=== PATIENT | female | born 1940 | race Caucasian/White ===

== ENCOUNTER 2024-11-19 14:33 | Emergency (ER) | payer MEDICARE ==
[2024-11-19 15:29] VITALS: TEMP 97.2
[2024-11-19 15:34] LABS: Appearance Cloudy (Clear); Bilirubin Negative (Negative); Blood Trace (Negative); Glucose, Urine Negative (Negative); Hyaline Casts NONE SEEN /LPF (0-2); Ketones Negative (Negative); Leukocyte Esterase Moderate (Negative); Nitrite Negative (Negative); Ph 5.5 (4.6-8.0); Protein,Urine Dip 100 (Negative); Specific Gravity 1.015 (1.005-1.030); Urobilinogen 0.2 mg/dL (0.2); WBC >100 /HPF (0-5)
[2024-11-19 15:47] LABS: Bacteria Few /HPF (None Seen); Budding Yeast Few /HPF (None Seen); Epithelial Cells Few /HPF (None Seen)
--- NOTE | 2024-11-19 15:47 | ERPHSYRPT ---
- History of Present Illness Time Seen by Provider: 11/19/24 15:38 Source: patient Exam Limitations: no limitations Patient Subjective Stated Complaint: UTI symptoms Triage Nursing Assessment: Patient brought back to ED per w/c and transferred self to bed. Patient A+O X3. Patient's skin pink, warm and dry. Patient complains of UTI symptoms for the past month. Patient complains of urgency, frequency, hesitency and pressure when urinating for the past month. Patient denies pain or discomfort. Allergies/Adverse Reactions: codeine [Codeine] Allergy (Verified 11/19/24 15:19) Nausea and Vomiting Penicillins Allergy (Verified 11/19/24 15:19) Sulfa (Sulfonamide Antibiotics) [Sulfa(Sulfonamide Antibiotics)] Allergy ( Verified 11/19/24 15:19) Rash Home Medications: Metoprolol Tartrate 25 mg [Lopressor 25MG Tab] 25 mg PO DAILY 03/08/12 [History] Multivitamin [Daily Multiple Vitamin] 1 each PO DAILY 03/08/12 [History] Omeprazole [Prilosec] 40 mg PO DAILY 03/08/12 [History] Fenofibrate [Lipofen] 134 mg PO DAILY 06/04/13 [History] Lisinopril 20 mg [Zestril 20 MG] 20 mg PO DAILY 06/04/13 [History] Hx Tetanus, Diphtheria Vaccination/Date Given: Yes (UNKNOWN) Hx Influenza Vaccination/Date Given: No Hx Pneumococcal Vaccination/Date Given: Yes Travel Risk - International Travel Have you traveled outside of the country in past 3 weeks: No - Emerging Infectious Disease Are you exhibiting symptoms associated with any current EIDs: No - Past Medical History Pertinent Past Medical History: Yes Neurological History: No Pertinent History ENT History: No Pertinent History Cardiac History: High Cholesterol, Hypertension Respiratory History: COPD Endocrine Medical History: Diabetes Type II Musculoskeletal History: Arthritis GI Medical History: GI Bleed, Irritable Bowel, Polyps History: No Pertinent History Psycho-Social History: No Pertinent History Female Reproductive Disorders: No Pertinent History Other Medical History: hiatel hernia,sob with exertion - Past Surgical History Past Surgical History: Yes Neuro Surgical History: Other Cardiac: No Pertinent History Respiratory: No Pertinent History Gastrointestinal: No Pertinent History, Rectal Surgery Genitourinary: No Pertinent History Musculoskeletal: Orthopedic Surgery Female Surgical History: Section, Hysterectomy, Tubal Ligation Other Surgical History: A & P repair. stroke left side affected - Social History Smoking Status: Never smoker Exposure to second hand smoke: Yes Drug Use: none - Social Determinants of Health Will the patient participate in the screening: Yes Do you worry about a steady place to live?: No Do you have any problems with any of the following?: No known problems In the past 12 months,have you had to go without utilities?: No Transportation Issues: No Has anyone in your support network made you feel unsafe?: No Have you or anyone in your house had to go w/o enough food: No - Nursing Vital Signs Nursing Vital Signs: Initial Vital Signs Temperature 97.2 F 11/19/24 15:22 Pulse Rate 96 H 11/19/24 15:22 Respiratory Rate 20 11/19/24 15:22 Blood Pressure 184/86 11/19/24 15:22 O2 Sat by Pulse Oximetry 97 11/19/24 15:22 Pain Scale Pain Intensity 0 - Physical Exam SpO2: 97 Ordered Tests: Active Orders 24 hr Category Date Time Status BMP Stat Lab 11/19/24 16:10 Completed CBC W DIFF Stat Lab 11/19/24 16:10 Completed CULTURE,URINE Stat Lab 11/19/24 15:18 Received UA W/RFX UR CULTURE Stat Lab 11/19/24 15:18 Completed Medication Summary Discontinued Medications Generic Name Dose Route Start Last Admin Trade Name Freq PRN Reason Stop Dose Admin Cefdinir 300 mg 11/19/24 17:43 Cefdinir 300 Mg Capsule PO 11/19/24 17:44 ONCE ONE Lab/Rad Data: Laboratory Result Diagrams 11/19/24 16:10 11/19/24 16:10 Laboratory Results 11/19/24 11/19/24 11/19/24 Range/Units 16:10 16:10 15:18 WBC 6.4 (3.98-10.04) x10^3/uL RBC 4.50 (3.93-5.22) x10^6/uL Hgb 13.7 (11.2-15.7) g/dL Hct 40.0 (34.1-44.9) % MCV 88.9 (79.4-94.8) fL MCH 30.4 (25.6-32.2) pg MCHC 34.3 (32.2-35.5) g/dL RDW 11.8 (11.7-14.4) % Plt Count 203 (182-369) x10^3/uL MPV 11.0 (9.4-12.3) fL Gran % 57.3 (34.0-71.1) % Immature Gran % (Auto) 0.2 (0.001-0.429) % Nucleat RBC Rel Count 0.0 (0.00-0.2) % Eos # (Auto) 0.02 L (0.04-0.36) x10^3/uL Immature Gran # (Auto) 0.01 (0.001-0.031) x10^3u/L Absolute Lymphs (auto) 1.97 (1.18-3.74) x10^3/uL Absolute Monos (auto) 0.70 (0.24-0.86) x10^3/uL Absolute Nucleated RBC 0.00 (0.00-0.012) x10^3u/L Lymphocytes % 30.7 (19.3-51.7) % Monocytes % 10.9 (4.7-12.5) % Eosinophils % 0.3 L (0.7-5.8) % Basophils % 0.6 (0.1-1.2) % Absolute Granulocytes 3.67 (1.56-6.13) x10^3/uL Basophils # 0.04 (0.01-0.08) x10^3/uL Sodium 138 (135-145) mmol/L Potassium 3.2 L (3.5-5.1) mmol/L Chloride 100 (98-107) mmol/L Carbon Dioxide 29 (22-30) mmol/L Anion Gap 12.7 (5-15) MEQ/L BUN 8 (7-17) mg/dL Creatinine 0.62 (0.52-1.04) mg/dL Estimated GFR 88.9 ML/MIN Glucose 210 H (74-106) mg/dL Calcium 8.8 (8.4-10.2) mg/dL Urine Color Yellow (Yellow) Urine Appearance Cloudy A (Clear) Urine pH 5.5 (4.6-8.0) Ur Specific [place] 1.015 (1.005-1.030) Urine Protein 100 A (Negative) Urine Glucose (UA) Negative (Negative) mg/dL Urine Ketones Negative (Negative) Urine Blood Trace (Negative) Urine Nitrite Negative (Negative) Urine Bilirubin Negative (Negative) Urine Urobilinogen 0.2 (0.2) mg/dL Ur Leukocyte Esterase Moderate A (Negative) U Hyaline Cast (Auto) NONE SEEN (0-2) /LPF Urine Microscopic RBC 6-10 A (0-5) /HPF Urine Microscopic WBC >100 A (0-5) /HPF Ur Epithelial Cells Few (None Seen) /HPF Urine Bacteria Few A (None Seen) /HPF Urine Yeast (Budding) Few A (None Seen) /HPF Urine Culture Reflexed YES (NO) - Progress Progress: improved Air Movement: good Progress Note: 11/19/24 17:44 UA suggestive of UTI other labs largely unremarkable pt vitally stable and AxO x3 throughout exam given dose of cefdinir in ED, will send home w/ 7d course complete entire course of antibiotics given list of local PCP - recommend trying to establish with Dr Helton this week recommend plenty of oral hydration be sure to take blood pressure medication as prescribed return to ED if - develop confusion, develop fevers, start to have falls 11/19/24 17:48 Blood Culture(s) Obtained: No Antibiotics given: Yes Counseled pt/family regarding: lab results, diagnosis, need for follow-up Medical Desision Making - Risk of complications Low Risk: Low risk of morbidity from additional dx testing or treatment - Departure Departure Disposition: Home Clinical Impression: UTI (urinary tract infection) Qualifiers: Urinary tract infection type: acute cystitis Hematuria presence: with hematuria Qualified Code(s): N30.01 - Acute cystitis with hematuria Hypertension Qualifiers: Hypertension type: primary hypertension Qualified Code(s): I10 - Essential (primary) hypertension Condition: Stable Critical Care Time: No Referrals: SYLVIA MARQUEZ DO [NON-STAFF PHY W/O PRIVILEGES] - Follow up/PCP as directed Additional Instructions: given dose of cefdinir in ED, will send home w/ 7d course complete entire course of antibiotics given list of local PCP - recommend trying to establish with Dr Helton this week recommend plenty of oral hydration be sure to take blood pressure medication as prescribed return to ED if - develop confusion, develop fevers, start to have falls Prescriptions: Cefdinir [Omnicef 300 mg] 300 mg PO BID 7 Days #13 cap
[2024-11-19 16:39] LABS: Absolute Neutrophil Ct (ANC) 3.67 x10^3/uL (1.56-6.13); BASOPHIL % 0.6 % (0.1-1.2); Basophil (Absolute #) 0.04 x10^3/uL (0.01-0.08); Eosinophil % 0.3 % (0.7-5.8); Eosinophil (Absolute #) 0.02 x10^3/uL (0.04-0.36); Hemoglobin 13.7 g/dL (11.2-15.7); IMMATURE GRAN # 0.01 x10^3u/L (0.001-0.031); IMMATURE GRAN % 0.2 % (0.001-0.429); Lymphocyte (Absolute #) 1.97 x10^3/uL (1.18-3.74); Lymphocytes % 30.7 % (19.3-51.7); Mean Cell Volume 88.9 fL (79.4-94.8); Mean Corpuscular Hemoglobin 30.4 pg (25.6-32.2); Mean Corpuscular Hgb Concent. 34.3 g/dL (32.2-35.5); Monocytes % 10.9 % (4.7-12.5); Neutrophil % 57.3 % (34.0-71.1); Platelet Count 203 x10^3/uL (182-369); Red Cell Distribution Width 11.8 % (11.7-14.4); White Blood Count 6.4 x10^3/uL (3.98-10.04)
[2024-11-19 17:11] LABS: ANION GAP 12.7 MEQ/L (5-15); Calcium 8.8 mg/dL (8.4-10.2); Creatinine 1 0.62 mg/dL (0.52-1.04); EST GLOMERULAR FILTRATION RATE 88.9 ML/MIN; Potassium 3.2 mmol/L (3.5-5.1)
[2024-11-19] MEDS: OMNICEF 300 MG PO ONE (18:11)
[2024-11-19 18:14] VITALS: BP 178/93; PULSE 102; RESP 18
[2024-11-19 18:17] VITALS: O2SAT 95
== END 2024-11-19 18:27 | disposition home or self-care (01) ==
LOC: ED 14:33
DX: N30.01 Acute cystitis with hematuria (principal); I10 Essential (primary) hypertension; E78.5 Hyperlipidemia, unspecified; E11.9 Type 2 diabetes mellitus without complications; Z79.899 Other long term (current) drug therapy
CPT/HCPCS: 36415; 80048; 81001; 85025; 87086; 99283; A9270-GY

== ENCOUNTER 2024-12-22 17:43 | Emergency (ER) | payer MEDICARE ==
[2024-12-22 18:08] VITALS: PULSE 99; TEMP 97.3
[2024-12-22 18:29] LABS: Appearance Cloudy (Clear); Bacteria None Seen /HPF (None Seen); Bilirubin Negative (Negative); Blood Trace (Negative); Budding Yeast Few /HPF (None Seen); Epithelial Cells Few /HPF (None Seen); Glucose, Urine >=1000 mg/dL (Negative); Hyaline Casts NONE SEEN /LPF (0-2); Ketones Negative (Negative); Leukocyte Esterase Moderate (Negative); Nitrite Negative (Negative); Ph 5.5 (4.6-8.0); Protein,Urine Dip 30 (Negative); RBC 21-50 /HPF (0-5); Urobilinogen 0.2 mg/dL (0.2); WBC >100 /HPF (0-5)
[2024-12-22 19:34] VITALS: BP 182/91
[2024-12-22 19:35] VITALS: O2SAT 97
--- NOTE | 2024-12-22 19:35 | ERPHSYRPT ---
- History of Present Illness Source: patient Exam Limitations: no limitations Patient Subjective Stated Complaint: uti Triage Nursing Assessment: Pt was brought to the ER by her son, hypertensive, rates discomfort at 7/10, pulses normal, skin n/w/d, urinary frequency, doesn't feel like she empties her bladder, pain after urination, denies chest pain, denies difficulty breathing, doesn't appear to be in any distress Physician History: Patient has recurrent urinary tract infections. She says she is having 1 again. She has dysuria frequency urgency and pressure in her suprapubic area. She does not have any fever or chills or flank pain or nausea vomiting. She has recurrent urinary tract infections. TheSecond to last time she grew out Enterococcus faecalis. Actually the last time Nothing grew from her culture.She is currently on Cefdinir Allergies/Adverse Reactions: codeine [Codeine] Allergy (Verified 12/22/24 18:08) Nausea and Vomiting Penicillins Allergy (Verified 12/22/24 18:08) Sulfa (Sulfonamide Antibiotics) [Sulfa(Sulfonamide Antibiotics)] Allergy (Verified 12/22/24 18:08) Rash Home Medications: Metoprolol Tartrate 25 mg [Lopressor 25MG Tab] 25 mg PO DAILY 03/08/12 [History] Multivitamin [Daily Multiple Vitamin] 1 each PO DAILY 03/08/12 [History] Omeprazole [Prilosec] 40 mg PO DAILY 03/08/12 [History] Fenofibrate [Lipofen] 134 mg PO DAILY 06/04/13 [History] Lisinopril 20 mg [Zestril 20 MG] 20 mg PO DAILY 06/04/13 [History] Amlodipine Bes/Olmesartan Med [Amlodipine-Olmesartan 5-40 mg] 1 each PO DAILY 12/22/24 [History] Atorvastatin Calcium 40 mg PO DAILY 12/22/24 [History] Insulin Aspart [NovoLOG Insulin] 0 unit SQ UD 12/22/24 [History] Insulin Glargine,Hum.rec.anlog [Lantus] 15 unit SQ HS 12/22/24 [History] Oxybutynin Chloride [Oxybutynin Chloride ER] 5 mg PO BID 12/22/24 [History] Hx Tetanus, Diphtheria Vaccination/Date Given: Yes (UNKNOWN) Hx Influenza Vaccination/Date Given: No Hx Pneumococcal Vaccination/Date Given: Yes Travel Risk - International Travel Have you traveled outside of the country in past 3 weeks: No (N) If Yes, where;: N - Emerging Infectious Disease Are you exhibiting symptoms associated with any current EIDs: No - Review of Systems Constitutional: No Symptoms Eyes: No Symptoms Ears, Nose, & Throat: No Symptoms Respiratory: No Symptoms Abdominal/Gastrointestinal: No Symptoms All Other Systems: Reviewed and Negative - Past Medical History Pertinent Past Medical History: Yes Neurological History: No Pertinent History ENT History: No Pertinent History Cardiac History: High Cholesterol, Hypertension Respiratory History: COPD Endocrine Medical History: Diabetes Type II Musculoskeletal History: Arthritis GI Medical History: GI Bleed, Irritable Bowel, Polyps History: No Pertinent History Psycho-Social History: No Pertinent History Female Reproductive Disorders: No Pertinent History Other Medical History: hiatel hernia,sob with exertion - Past Surgical History Past Surgical History: Yes Neuro Surgical History: Other Cardiac: No Pertinent History Respiratory: No Pertinent History Gastrointestinal: No Pertinent History, Rectal Surgery Genitourinary: No Pertinent History Musculoskeletal: Orthopedic Surgery Female Surgical History: Section, Hysterectomy, Tubal Ligation Other Surgical History: A & P repair. stroke left side affected - Social History Smoking Status: Never smoker Exposure to second hand smoke: Yes Drug Use: none - Social Determinants of Health Will the patient participate in the screening: Yes Do you worry about a steady place to live?: No Do you have any problems with any of the following?: No known problems In the past 12 months,have you had to go without utilities?: No Transportation Issues: No Has anyone in your support network made you feel unsafe?: No Have you or anyone in your house had to go w/o enough food: No - Nursing Vital Signs Nursing Vital Signs: Initial Vital Signs Temperature 97.3 F 12/22/24 18:02 Pulse Rate 99 H 12/22/24 18:02 Blood Pressure 173/84 12/22/24 18:02 O2 Sat by Pulse Oximetry 97 12/22/24 18:02 Pain Scale Pain Intensity 7 - Physical Exam General Appearance: no apparent distress Eye Exam: PERRL/EOMI Ears, Nose, Throat Exam: normal ENT inspection Neck Exam: normal inspection Gastrointestinal/Abdomen Exam: soft, normal bowel sounds, tenderness (Suprapub ic) Neurologic Exam: alert, oriented x 3 Skin Exam: normal color, warm SpO2: 97 - Course Nursing assessment & vital signs reviewed: Yes Ordered Tests: Active Orders 24 hr Category Date Time Status CULTURE,URINE Stat Lab 12/22/24 18:11 Received UA W/RFX UR CULTURE Stat Lab 12/22/24 18:11 Completed Lab/Rad Data: Laboratory Results 12/22/24 Range/Units 18:11 Urine Color Yellow (Yellow) Urine Appearance Cloudy A (Clear) Urine pH 5.5 (4.6-8.0) Ur Specific [place] 1.020 (1.005-1.030) Urine Protein 30 (Negative) Urine Glucose (UA) >=1000 A (Negative) mg/dL Urine Ketones Negative (Negative) Urine Blood Trace (Negative) Urine Nitrite Negative (Negative) Urine Bilirubin Negative (Negative) Urine Urobilinogen 0.2 (0.2) mg/dL Ur Leukocyte Esterase Moderate A (Negative) U Hyaline Cast (Auto) NONE SEEN (0-2) /LPF Urine Microscopic RBC 21-50 A (0-5) /HPF Urine Microscopic WBC >100 A (0-5) /HPF Ur Epithelial Cells Few (None Seen) /HPF Urine Bacteria None Seen (None Seen) /HPF Urine Yeast (Budding) Few A (None Seen) /HPF Urine Culture Reflexed YES (NO) - Progress Progress: unchanged Air Movement: good - Departure Departure Disposition: Home Clinical Impression: UTI (urinary tract infection) Condition: Stable Critical Care Time: No Referrals: CRYSTAL PRATT NP [Primary Care Provider, [facility]] - Follow up/PCP as directed Instructions: Urinary Tract Infection, Adult (DC)
== END 2024-12-22 19:50 | disposition home or self-care (01) ==
LOC: ED 17:43
DX: N39.0 Urinary tract infection, site not specified (principal); R30.0 Dysuria; R35.0 Frequency of micturition; E78.5 Hyperlipidemia, unspecified; I10 Essential (primary) hypertension; E11.9 Type 2 diabetes mellitus without complications; Z79.4 Long term (current) use of insulin; Z79.899 Other long term (current) drug therapy
CPT/HCPCS: 81001; 87086; 99282; 99283

== ENCOUNTER 2025-08-03 15:41 | Emergency (ER) | payer MEDICARE ==
[2025-08-03 16:21] VITALS: TEMP 97.5
--- NOTE | 2025-08-03 16:53 | ERPHSYRPT ---
- History of Present Illness Time Seen by Provider: 08/03/25 16:49 Source: patient Exam Limitations: no limitations Patient Subjective Stated Complaint: pt has had an ongoing UTI for several months and is being treated by Dr. New with Cephalexin Triage Nursing Assessment: Pt brought to the ER by her grandson, hypertensive, rates pain as 5/10, pulses normal, skin n/w/d, denies chest pain, no SOB, has been on nonstop antibiotics for several months with no success, doesn't appear to be in any distress Physician History: Patient is an 84-year-old female history of stroke, hypertension, hyperlipidemia, COPD, type 2 diabetes, arthritis, irritable bowel disease chronic urinary tract infections being managed by Dr. New presents to our ED for evaluation of urinary symptoms. Patient experiencing dysuria, urgency and i ncreased urinary frequency. Patient currently on cephalexin. No trauma no fever no chest pain no shortness of breath. No abdominal pain or back pain. Symptoms are constant. Symptoms are moderate in intensity. No specific worsening or improving factors. Patient otherwise feels well. She voices no other complaints or concerns at this time. Portions of this note were created with voice recognition technology. There may be grammatical, spelling, punctuation or sound alike errors Timing/Duration: week(s) Severity: moderate Modifying Factors: Improves With: nothing Associated Symptoms: denies symptoms Allergies/Adverse Reactions: codeine [Codeine] Allergy (Verified 08/03/25 16:13) Nausea and Vomiting Penicillins Allergy (Verified 08/03/25 16:13) Sulfa (Sulfonamide Antibiotics) [Sulfa(Sulfonamide Antibiotics)] Allergy (Verified 08/03/25 16:13) Rash Home Medications: Metoprolol Tartrate 25 mg [Lopressor 25MG Tab] 50 mg PO BID 03/08/12 [History] Multivitamin [Daily Multiple Vitamin] 1 each PO DAILY 03/08/12 [History] Omeprazole [Prilosec] 40 mg PO DAILY 03/08/12 [History] Lisinopril 20 mg [Zestril 20 MG] 20 mg PO BID 06/04/13 [History] Amlodipine Bes/Olmesartan Med [Amlodipine-Olmesartan 5-40 mg] 1 each PO DAILY 12/22/24 [History] Atorvastatin Calcium 40 mg PO DAILY 12/22/24 [History] Insulin Aspart [NovoLOG Insulin] 0 unit SQ UD PRN 12/22/24 [History] Insulin Glargine,Hum.rec.anlog [Lantus] 15 unit SQ HS 12/22/24 [History] Apixaban [Eliquis] 5 mg PO BID 04/28/25 [History] Solifenacin Succinate [Vesicare] 5 mg PO DAILY 08/03/25 [History] cephALEXin [Cephalexin] 500 mg PO DAILY 08/03/25 [History] Hx Tetanus, Diphtheria Vaccination/Date Given: Yes (UNKNOWN) Hx Influenza Vaccination/Date Given: No Hx Pneumococcal Vaccination/Date Given: No Travel Risk - International Travel Have you traveled outside of the country in past 3 weeks: No - Emerging Infectious Disease Are you exhibiting symptoms associated with any current EIDs: No Symptoms: Diarrhea - Review of Systems All Other Systems: Reviewed and Negative - Past Medical History Pertinent Past Medical History: Yes Neurological History: No Pertinent History, Stroke ENT History: No Pertinent History Cardiac History: High Cholesterol, Hypertension Respiratory History: COPD Endocrine Medical History: Diabetes Type II Musculoskeletal History: Arthritis GI Medical History: GI Bleed, Irritable Bowel, Polyps History: No Pertinent History Psycho-Social History: No Pertinent History Female Reproductive Disorders: No Pertinent History Other Medical History: HIATAL HERNIA, SOB, HX RIGHT CVA - Past Surgical History Past Surgical History: Yes Neuro Surgical History: Other Cardiac: No Pertinent History Respiratory: No Pertinent History Gastrointestinal: No Pertinent History, Rectal Surgery Genitourinary: No Pertinent History Musculoskeletal: Orthopedic Surgery Female Surgical History: Section, Hysterectomy, Tubal Ligation Other Surgical History: A & P repair Significant Family History: no pertinent family hx - Social History Smoking Status: Never smoker Exposure to second hand smoke: Yes Drug Use: none - Social Determinants of Health Will the patient participate in the screening: Yes Do you worry about a steady place to live?: No Do you have any problems with any of the following?: No known problems In the past 12 months,have you had to go without utilities?: No Transportation Issues: No Has anyone in your support network made you feel unsafe?: No Have you or anyone in your house had to go w/o enough food: No - Nursing Vital Signs Nursing Vital Signs: Initial Vital Signs Temperature 97.5 F 08/03/25 16:15 Pulse Rate 94 H 08/03/25 16:15 Blood Pressure 163/95 08/03/25 16:15 O2 Sat by Pulse Oximetry 94 L 08/03/25 16:15 Pain Scale Pain Intensity 0 - Physical Exam General Appearance: no apparent distress, alert Eye Exam: PERRL/EOMI, eyes nml inspection Ears, Nose, Throat Exam: normal ENT inspection, moist mucous membranes Neck Exam: normal inspection, full range of motion Respiratory Exam: normal breath sounds, lungs clear, No respiratory distress Cardiovascular Exam: regular rate/rhythm, normal heart sounds, normal peripheral pulses Gastrointestinal/Abdomen Exam: soft, normal bowel sounds, tenderness (Suprapubic tenderness to palpation. Overlying soft tissue intact. No signs of trauma), No mass Back Exam: normal inspection, normal range of motion, No CVA tenderness, No vertebral tenderness Extremity Exam: normal inspection, normal range of motion, pelvis stable Neurologic Exam: alert, oriented x 3, cooperative, normal mood/affect, sensation nml, No motor deficits Skin Exam: normal color, warm, dry, No rash Lymphatic Exam: No adenopathy SpO2 Interpretation: normal SpO2: 95 O2 Delivery: Room Air - Course Nursing assessment & vital signs reviewed: Yes - CT Exams Abdomen/Pelvis CT Interpretation: Tele-radiologist Report (No change compared to 02/15/2025. Moderate hiatal hernia with partial intrathoracic stomach, sigmoid diverticulosis, atherosclerotic disease osteopenia mild levoscoliosis and left hip arthroplasty. No new acute findings) Ordered Tests: Active Orders 24 hr Category Date Time Status ABDOMEN AND PELVIS W/0 CONTRAS [CT] Stat Exams 08/03/25 16:55 Taken CULTURE,URINE Stat Lab 08/03/25 16:44 Received UA W/RFX UR CULTURE Stat Lab 08/03/25 16:44 Completed Medication Summary Generic Name Dose Route Start Last Admin Trade Name Freq PRN Reason Stop Dose Admin Ciprofloxacin 500 mg 08/03/25 22:00 08/03/25 18:14 Ciprofloxacin 500 Mg Tablet PO 09/02/25 21:59 500 mg BID ARCHANA Administration Discontinued Medications Generic Name Dose Route Start Last Admin Trade Name Freq PRN Reason Stop Dose Admin Acetaminophen 975 mg 08/03/25 18:12 08/03/25 18:20 Acetaminophen 325 Mg Tablet PO 08/03/25 18:13 975 mg STAT ONE Administration Acetaminophen Confirm 12/05/25 18:19 Acetaminophen 325 Mg Tablet Administered 08/03/25 18:20 Dose 975 mg .ROUTE .STK-MED ONE Fluconazole 150 mg 08/03/25 18:10 08/03/25 18:56 Fluconazole 150 Mg Tablet PO 08/03/25 18:11 150 mg ONCE STA Administration Lisinopril 20 mg 08/03/25 19:32 08/03/25 19:39 Lisinopril 20 Mg Tablet PO 08/03/25 19:33 20 mg STAT ONE Administration Metoprolol Tartrate 25 mg 08/03/25 19:32 08/03/25 19:39 Metoprolol Tartrate 25 Mg Tab PO 08/03/25 19:33 25 mg STAT ONE Administration Metoprolol Tartrate Confirm 08/03/25 19:33 Metoprolol Tartrate 25 Mg Tab Administered 08/03/25 19:34 Dose 25 mg .ROUTE .STK-MED ONE Lab/Rad Data: Laboratory Results 08/03/25 Range/Units 16:44 Urine Color Yellow (Yellow) Urine Appearance Turbid A (Clear) Urine pH 5.0 (4.6-8.0) Ur Specific [place] >=1.030 A (1.005-1.030) Urine Protein 30 (Negative) Urine Glucose (UA) >=1000 A (Negative) mg/dL Urine Ketones Negative (Negative) Urine Blood Moderate A (Negative) Urine Nitrite Negative (Negative) Urine Bilirubin Negative (Negative) Urine Urobilinogen 0.2 (0.2) mg/dL Ur Leukocyte Esterase Moderate A (Negative) U Hyaline Cast (Auto) NONE SEEN (0-2) /LPF Urine Microscopic RBC NONE (0-5) /HPF Urine Microscopic WBC >100 A (0-5) /HPF Ur Epithelial Cells Rare (None Seen) /HPF Urine Bacteria Rare A (None Seen) /HPF Urine Yeast (Budding) Few A (None Seen) /HPF Urine Culture Reflexed YES (NO) - Progress Progress: improved Progress Note: I spoke to Dr. New at 6:07 PM. He advised discharging home on ciprofloxacin and Diflucan and discontinuing her Keflex. He requested urine culture which the UA has reflexed to culture. Patient to follow-up in his office in 1 week. 08/03/25 18:08 Patient is an 84-year-old female history of stroke, hypertension, hyperlipidemia, COPD, type 2 diabetes, arthritis, irritable bowel disease chronic urinary tract infections being managed by Dr. New presents to our ED for evaluation of urinary symptoms. Patient experiencing dysuria, urgency and increased urinary frequency. Patient currently on cephalexin. No trauma no fever no chest pain no shortness of breath. No abdominal pain or back pain. Physical exam reveals suprapubic tenderness. Overlying soft tissue intact. No signs of trauma. UA significant for urinary tract infection and budding yeast. CT abdomen pelvis negative for acute pathology Patient received an oral dose of Diflucan 150 mg and 500 mg of Cipro. History obtained from patient. Differential diagnosis includes cystitis, urinary tract infection, kidney stone Complexity of problems addressed is moderate acute complicated. No critical care time. Complexity of data reviewed and analyzed is extensive. Test ordered chest reviewed results analyzed and correlated clinically with history and physical exam. Management discussed with Dr. Dc patient's urologist who advised antibiotic management with follow-up. Risk of complication at risk of morbidity/mortality of patient management is moderate. A prescription for Cipro and Diflucan forwarded to patient's pharmacy. Vital stable. Time spent to discharge patient is approximately 15 minutes. Plan of care established via shared decision making. No social determinants of health present to impede follow-up. Portions of this note were created with voice recognition technology. There may be grammatical, spelling, punctuation or sound alike errors 08/03/25 18:13 Counseled pt/family regarding: lab results, diagnosis, need for follow-up - Departure Departure Disposition: Home Clinical Impression: UTI (urinary tract infection), Yeast UTI, Cystitis, Dysuria Condition: Stable Critical Care Time: No Referrals: CRYSTAL PRATT NP [Primary Care Provider, [facility]] - Follow up/PCP as directed Instructions: Urinary tract infection - Discharge instructions Additional Instructions: Please follow-up with Dr. Dc within 48 hours for reevaluation. Would like to see you in his office next Wednesday Discharge/Care Plan LLOYD ANTHONY was seen on 08/03/25 in the Emergency Room. The patient was counseled regarding Diagnosis,Lab results, Imaging studies, need for follow up and when to return to the Emergency Room. Prescriptions given: Discharge Note I have spoken with the patient and/or caregivers. I have explained the patient's condition, diagnosis and treatment plan based on the information available to me at this time. I have answered the patient's and/or caregiver's questions and addressed any concerns. The patient and/or caregivers have as good understanding of the patient's diagnosis, condition and treatment plan as can be expected at this point. The vital signs have been stable. The patient's condition is stable and appropriate for discharge from the emergency department. The patient will pursue further outpatient evaluation with the primary care physician or other designated or consulting physician as outlined in the discharge instructions. The patient and/or caregivers are agreeable to this plan of care and follow-up instructions have been explained in detail. The patient and/or caregivers have received these instruction. The patient/and or caregivers are aware that any significant change in condition or worsening of symptoms should prompt an immediate return to this or the closest emergency department or call 911. Prescriptions: Ciprofloxacin [Cipro 500 MG] 500 mg PO BID 7 Days #14 tablet Fluconazole [Diflucan ] 150 mg PO DAILY 2 Days #2 tablet
[2025-08-03 17:12] LABS: Glucose, Urine >=1000 mg/dL (Negative); Protein,Urine Dip 30 (Negative); WBC >100 /HPF (0-5)
[2025-08-03] MEDS ORDERED: Cipro 500 MG ONE (18:12)
[2025-08-03] MEDS: Cipro 500 MG PO SCH (18:14)
[2025-08-03] MEDS ORDERED: TYLENOL 325 MG ONE (18:19)
[2025-08-03] MEDS: TYLENOL 325 MG PO ONE (18:20)
[2025-08-03] MEDS: DIFLUCAN PO STA (18:56)
[2025-08-03 19:19] VITALS: RESP 18
[2025-08-03] MEDS ORDERED: Lopressor 25MG Tab ONE (19:33)
[2025-08-03] MEDS: Zestril 20 MG PO ONE (19:39)
[2025-08-03] MEDS: Lopressor 25MG Tab PO ONE (19:39)
[2025-08-03 20:32] VITALS: BP 185/106; PULSE 76; O2SAT 98
--- NOTE | 2025-08-04 07:56 | XRAY ---
Indication: Pain. UTI. Multiple contiguous axial images obtained through the abdomen and pelvis without contrast. Comparison: February 15, 2025 Lung bases again demonstrates minimal right middle lobe subsegmental atelectasis/scarring. No infiltrate or effusion. Heart not enlarged again with coronary calcifications and mitral valve calcifications. Stable large hiatal hernia with partial intrathoracic stomach. Again left hip arthroplasty produces beam artifact limiting disc level. Noncontrasted stomach and bowel loops appear nonobstructed. Minimal sigmoid diverticulosis without diverticulitis. Again small left adrenal adenoma and cholecystectomy. No free fluid/air. Remaining liver, pancreas, spleen, adrenal glands, kidneys, ureters, and bladder are unremarkable for noncontrast exam. There remains moderate scattered aortoiliac calcifications without AAA. Osseous structures intact again with osteopenia, minimal degenerative changes throughout spine, and minimal levoscoliosis. Impression: 1. Again beam artifact from left hip arthroplasty. 2. Chronic findings including atelectasis/scarring, hiatal hernia with partial intrathoracic stomach, sigmoid diverticulosis, arteriosclerotic disease, left adrenal adenoma, and chronic bony findings. 3. No new/acute findings on this noncontrast exam.
== END 2025-08-03 20:20 | disposition home or self-care (01) ==
LOC: ED 15:41
DX: B37.41 Candidal cystitis and urethritis (principal); R30.0 Dysuria; R35.0 Frequency of micturition; I10 Essential (primary) hypertension; E11.9 Type 2 diabetes mellitus without complications; Z79.4 Long term (current) use of insulin; Z79.01 Long term (current) use of anticoagulants; Z79.899 Other long term (current) drug therapy